=== PATIENT | female | born 1980 | race Caucasian/White ===

== ENCOUNTER → 2017-07-24 | Emergency (ER) | payer BC ==
[~2017-07-24] MED LIST: NORMAL SALINE 10 ML SYRINGE FLUSH IVP PRN; Sodium Chloride 0.9% 1,000 ML PRIMARY IV ONE
[2017-07-24 18:07] VITALS: RESP 16; TEMP 97.3
--- NOTE | 2017-07-24 18:11 | PDOC ---
General Adult HPI - General Chief Complaint: General Medical Stated Complaint: DIZZINESS Date Seen by Provider: 07/24/17 Time Seen by Provider: 18:08 - History of Present Illness Initial Comment: Patient is a very nice 37-year-old woman who presents to the emergency department complaints of dizziness and generalized weakness. She states she's just not feeling herself. She believes her symptoms been going on for about 2- 3 days. She feels nauseated with her dizziness. She states the only time she felt like this in the past when she's been . She denies any other toxic ingestion or sick contact or any other obvious source for symptoms. She is not checking home test. She states that she is expecting her next. Soon. She is denying any active vomiting or diarrhea. She is not having double vision or other neurologic issue. She does not have substantial exacerbation of her dizziness with head turning or position. Have you received a tetanus shot in the past 10 years?: Unknown - Patient Allergies Allergies/Adverse Reactions: Allergies Allergy/AdvReac Type Severity Reaction Status Date / Time acetaminophen [From Tylenol] Allergy ITCHING Verified 07/24/17 18:20 morphine Allergy HALLUCINATI Verified 07/24/17 18:20 ONS Past Medical History - heen HEENT History: Deaf Cardiovascular History: Denies History Respiratory History: Denies History Gastrointestinal History: Denies History Genitourinary History: Denies History, Recurrent UTI Endocrine History: Denies History Musculoskeletal History: Arthritis, Back Pain, Back Injury Prosthesis or Implant: No Additional Musculoskeletal History: UNSPECIFIED BACK SURGERY Neurological History: CVA Additional Neurological History: 2006 Blood Disorders: Clotting Disorders Psychiatric History: Denies History History of Sexually Transmitted Diseases: No Additional Female Reproductive History: UTERINE MASS LMP: JUNE 27 Obstetrical History: Denies History Cancer History: Denies History In Past Year Been Physically Harmed or Verbally Threatened: No History of MDRO: No History of Other Communicable Diseases: No Tobacco Use: Never Smoker Alcohol Use: Rarely Type of alcohol normally used: Beer Substance Use Type: None Previous Surgical History: No Anesthesia Reactions: No Malignant Hyperthermia: No Family History of Malignant Hyperthermia: No Significant Family History: No pertinent family hx Past Medical History Reviewed: Reviewed - No Changes ROS - Limitations ROS Limitations: No Limitations Constitution: REPORTS: Denies Symptoms Cardiovascular: REPORTS: Denies Cardiac Symptoms Respiratory: REPORTS: Denies Resp Symptoms Neurological: REPORTS: Dizziness Gastrointestinal: REPORTS: Nausea Musculoskeletal: REPORTS: Denies MS Symptoms General Adult Exam - General Appearance General Appearance: POSITIVE: Alert, Cooperative, No Acute Distress - HEENT HEENT: POSITIVE: Head Inspection Nml, Eyes Inspection Nml, Ears Inspection Nml, Pharynx Inspect. Nml - Neck Neck: POSITIVE: Normal Inspection - Respiratory Respiratory: POSITIVE: No Respiratory Distress, Breath Sounds Normal - Cardiovascular Cardiovascular: POSITIVE: Regular Rate & Rhythm, No Murmur - Abdomen Abdomen: Soft: (All Quadrants), Normal Bowel Sounds: (All Quadrants), Denies Tenderness: (All Quadrants) - Skin Skin: POSITIVE: Normal Color, Warm, Dry - Extremities Additional Extremities Details: Extremities are benign without any edema - Neurological / Psychological Neurological: POSITIVE: Affect Apporpriate, Oriented X3 General Adult Progress - Results Reviewed by me Lab Results Reviewed: Yes Lab Results:: Laboratory Results 07/24/17 Range/Units 18:50 WBC 9.57 (4.8-10.8) 10^3/uL RBC 4.44 (4.20-5.40) 10^6/uL Hgb 11.4 L (12.0-16.0) g/dL Hct 37.2 (37.0-47.0) % MCV 83.8 (81-99) FL MCH 25.7 L (27-31) PG MCHC 30.6 L (33-37) g/dL RDW Std Deviation 46.6 (39-50) fL RDW Coeff of Leslye 15.3 H (11.5-14.5) % Plt Count 436 H (140-350) 10*3/uL MPV 8.5 (7.4-12.2) FL Immature Gran % (Auto) 0.1 (0-5) % Neut % (Auto) 53.8 (50-80) % Lymph % (Auto) 32.6 (10-50) % [place] % (Auto) 8.4 (5-15) % Eos % (Auto) 4.3 (0-8) % Baso % (Auto) 0.8 (0-1) % Immature Gran # (Auto) 0.01 10*3/UL Neut # (Auto) 5.15 10*3/UL Lymph # (Auto) 3.12 10*3/uL [place] # (Auto) 0.80 (0.3-0.8) 10*3/UL Eos # (Auto) 0.41 10*3/UL Baso # (Auto) 0.08 10*3/UL WBC Morphology Comment Normal morphology (NORM) Plt Morphology Comment Normal morphology (NORM) RBC Morph Comment Normal morphology (NORM) Sodium 140 (135-145) meq/L Potassium 3.6 L (3.8-5.2) meq/L Chloride 105 (98-112) meq/L Carbon Dioxide 22 L (23-33) meq/L Anion Gap 13 (5-20) BUN 8 (7-22) mg/dL Creatinine 0.7 (0.50-1.20) mg/dL Estimated GFR > 60 (>60 ml/min/1.73m(2)) BUN/Creatinine Ratio 11.42 (6-20) Glucose 84 (78-110) mg/dL Calculated Osmolality 286.0 (267-292) mOsm/kg Calcium 9.5 (8.7-10.7) mg/dL Magnesium 2.0 (1.6-2.4) mg/dL Total Bilirubin 0.6 (0.3-1.2) mg/dL AST 33 (8-39) IU/L ALT 46 (9-52) IU/L Alkaline Phosphatase 71 (38-126) IU/L Total Protein 7.7 (6.1-8.0) g/dL Albumin 4.6 (3.5-4.8) g/dL Globulin 3.1 (2.50-4.10) g/dL Albumin/Globulin Ratio 1.40 (1.3-2.0) mg/g Serum HCG, Qual Negative Ur Collection Type Voided specimen Urine Color Yellow Urine Clarity Clear (CLEAR) Urine pH 5.5 (5.0-8.5) Ur Specific [place] <=1.005 (1.005-1.030) Urine Protein Negative (NEG) mg/dl Urine Glucose (UA) Negative (NEG) mg/dL Urine Ketones Negative (NEG) Urine Occult Blood Negative (NEG) Urine Nitrate Negative (NEG) Urine Bilirubin Negative (NEG) Urine Urobilinogen 0.2 (0.2) EU/dL Ur Leukocyte Esterase Negative (NEG) Ur Culture Indicated? Culture not set - Patient's Progress MDM / ED Course: This patient is suffering from some dizziness it is occasionally causing some nausea but via blood work and physical exam does not show an obvious source. She has no obvious focal neurologic deficits no nystagmus and is not reporting any sort of vertiginous symptoms. She has benign-appearing tympanic membranes and normal cardiopulmonary evaluation. She is a very minimally decreased potassium. I've asked her to follow-up with her primary care provider hopefully even tomorrow for re-evaluation and reexam. Also had like for her to have a repeat metabolic panel to look at her again in the next couple days. I' ve told her that she should follow-up here right away if she has any increase in symptoms any headache any fever or any chills any other concerning issues at all. Patient Care Time - Estimated PCT Patient Care Time (In Minutes): 35 Vital Signs - Recent Vital Signs Vital Signs: Vital Signs (Last 8 hours) Temp Pulse Resp BP 07/24/17 17:52 97.3 F 69 16 114/72 - VS Reviewed Vital Signs Reviewed: Yes Discharge Clinical Impression: Dizziness Discharge Disposition: Discharged to Home Condition: Good Additional Instructions: Monitor symptoms closely and follow-up with your primary care provider as soon as possible for further evaluation No driving or heights or any other potentially dangerous activity while your dizzy Return here to the emergency department for reevaluation with any worsening of symptoms or other concerns at all. Follow Up With: NONE,NONE [Primary Care Provider] -
[2017-07-24 19:02] LABS: BILIRUBIN,URINE NEGATIVE (NEG); CLARITY,URINE CLEAR (CLEAR); COLOR,URINE YELLOW; GLUCOSE, URINE (UA) NEGATIVE (NEG); NITRATE,URINE NEGATIVE (NEG); OCCULT BLOOD,URINE NEGATIVE (NEG); PH,URINE 5.5 (5.0-8.5); PROTEIN,URINE NEGATIVE (NEG); URINE SAMPLE TYPE VOIDED SPECIMEN; UROBILINOGEN,URINE 0.2 EU/dL (0.2)
[2017-07-24 19:03] LABS: BASOPHILS # (AUTO) 0.08 10*3/UL; BASOPHILS % (AUTO) 0.8 % (0-1); EOSINOPHILS # (AUTO) 0.41 10*3/UL; EOSINOPHILS % (AUTO) 4.3 % (0-8); HEMATOCRIT 37.2 % (37.0-47.0); HEMOGLOBIN 11.4 g/dL (12.0-16.0); LYMPHOCYTES # (AUTO) 3.12 10*3/uL; MEAN CORPUSCULAR HEMOGLOBIN 25.7 PG (27-31); MEAN CORPUSCULAR HGB CONC 30.6 g/dL (33-37); MEAN CORPUSCULAR VOLUME 83.8 FL (81-99); MEAN PLATELET VOLUME 8.5 FL (7.4-12.2); MONOCYTES % (AUTO) 8.4 % (5-15); NEUTROPHILS # (AUTO) 5.15 10*3/UL; NEUTROPHILS % (AUTO) 53.8 % (50-80); RED BLOOD COUNT 4.44 10^6/uL (4.20-5.40)
[2017-07-24 19:04] LABS: PLATELET MORPHOLOGY COMMENT NORMAL MORPHOLOGY (NORM); RBC MORPHOLOGY COMMENT NORMAL MORPHOLOGY (NORM); WBC MORPHOLOGY COMMENT NORMAL MORPHOLOGY (NORM)
[2017-07-24 19:11] LABS: BLOOD UREA NITROGEN 8 mg/dL (7-22); BUN/CREATININE RATIO 11.42 (6-20); CALCIUM 9.5 mg/dL (8.7-10.7); EST GLOMERULAR FILTRATION > 60 (>60 ml/min/1.73m(2)); SERUM ALBUMIN 4.6 g/dL (3.5-4.8)
== END ==
LOC: ER 17:48
DX: R42 Dizziness and giddiness (principal); R53.1 Weakness; R11.0 Nausea
CPT/HCPCS: 80053; 81003; 83735; 84703; 85025; 96360; 99282; 99283; J7030